=== PATIENT | female | born 2000 | race Caucasian/White ===

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

== ENCOUNTER 2021-10-28 04:58 | Outpatient (CLI) | payer OTHER, SELFPAY ==
[2021-11-02 09:53] LABS: HPV Reflexed? NOT INDICATED
== END 2021-10-28 23:59 | disposition home or self-care (01) ==
LOC: LABSPEC 11-04 04:59
PROVIDERS: PCP Family Medicine; Visit Provider Obstetrics & Gynecology
DX: Z12.4 Encounter for screening for malignant neoplasm of cervix (principal)
CPT/HCPCS: 88175; G0145